=== PATIENT | male | born 1985 | race Caucasian/White ===

== ENCOUNTER 2019-05-23 01:20 | Emergency (ER) ==
[2019-05-23 01:28] VITALS: BP 131/75; TEMP 97.6; BMI 31.0
[2019-05-23] MEDS ORDERED: LIDOCAINE HCL 1% SDV SUBCUT STA ×2 (01:51→01:52)
[2019-05-23] MEDS ORDERED: TENIVAC IM ONE (02:11)
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
[2019-05-23] MEDS ORDERED: NORCO 5-325 PO STA (02:17)
[2019-05-23] MEDS ORDERED: KEFLEX PO STA (02:17)
--- NOTE | 2019-05-23 02:43 | DI ---
Exam: Right foot three-view HISTORY: Injury and pain Findings / impression: No bony or articular abnormality of the foot. Prior side plate fixation of t he distal fibula.
--- NOTE | 2019-05-23 02:45 | DI ---
EXAM: Right ankle three views HISTORY: Trauma COMPARISON: None. FINDINGS: Metallic plate and screws are noted about the lateral aspect of the distal fibula. Ossifi cation is noted at the level of the syndesmosis. Degenerative changes noted about the ankles. There is no acute fracture or dislocation. Several well corticated bony bodies are seen inferior to the m edial malleolus which have a chronic appearance IMPRESSION: Postoperative and degenerative changes as described. No acute findings
== END 2019-05-23 02:48 | disposition home or self-care (01) ==
LOC: ED 01:20
DX: S91.311A Laceration without foreign body, right foot, initial encounter (principal); W45.8XXA Other foreign body or object entering through skin, initial encounter
CPT/HCPCS: 90471; 90714; 99283